=== PATIENT | female | born 1965 | race Caucasian/White ===

== ENCOUNTER 2016-08-19 11:46 | Emergency (ER) | payer OTHER ==
[2016-08-19 11:53] VITALS: BP 139/72; PULSE 73; TEMP 97.9; BMI 26.5
--- NOTE | 2016-08-19 12:35 | PDOC ---
Suture Removal/Wound Check HPI - History of Present Illness Chief Complaint: Revisit,Wound Recheck Stated Complaint: WOUND Time Seen by Provider: 08/19/16 11:59 History Source: Yes: Patient Exam Limitations: Yes: No Limitations Treated at: [facility] Date of Last ED visit: 08/16/16 - Previous ED Treatment Type of procedure performed on last visit: Yes: Laceration Repair (right foot) Tetanus Immunization: Yes: Up to Date Antibiotics Prescribed: Yes Past History - Past Medical History Allergies/Adverse Reactions: Allergies No Known Allergies Allergy (Verified 08/19/16 11:53) Home Medications: Ambulatory Orders Unobtainable [Unobtainable] 08/19/16 General: Yes: no pertinent history Surgical History: Yes: No Surgical History - Social History Smoking History: No Smoking Status: Never smoked Number of Ciarettes Per Day: 0 Alcohol Use: none Drug Use: none Suture Removal/Wound Check PE - Physical Exam Laceration/Wound Check Symptoms: reports: None Comments: 08/19/16 12:30 51 yr female here for wound check bottom of left foot sustained laceration . pt states pain is much improved. no fever, no redness or drainage. Current Severity Level: None Maximum Severity Level: None Location of Laceration/Wound: left: Foot (bottom of right foot ) *Review of Systems - Review of Systems Able to Perform ROS?: Yes Integumentary: Yes: See HPI, Other (wound check right plantar surface) Procedures - Additional Procedures Progress: 08/19/16 13:12 right plantar surface with healing jagged wound, dermabond intact. wound redressed no drainage Medical Decision Making - Medical Decision Making 08/19/16 13:10 cc: wound check right plantar surface. wound was repaired with dermabond placed on keflex. pt states pain is much improved, no fever no drainage wound re-dressed and dc inst given in bengali pt understands [facility] dc plan all questions asked and answered. 08/19/16 13:11 *DC/Admit/Observation/Transfer Diagnosis at time of Disposition: Visit for wound check - Referrals Referrals: Logan Moreno MD [Primary Care Provider] - - Patient Instructions Additional Instructions: keep clean and dry remove the dressing at home in 3 days apply a bandaid or wrap to cover until healed the tape and the glue will peel off on its own in about one week
== END 2016-08-19 12:35 | disposition home or self-care (01) ==
LOC: JERFT 11:46
DX: Z48.01 Encounter for change or removal of surgical wound dressing (principal)
CPT/HCPCS: 99281-25

== ENCOUNTER 2019-06-15 11:37 | Emergency (ER) | payer OTHER ==
[2019-06-15 11:43] VITALS: BP 116/78; PULSE 79; TEMP 98.4; BMI 25.7
--- NOTE | 2019-06-15 12:43 | PDOC ---
History of Present Illness - General Chief Complaint: Vomiting/Diarrhea Stated Complaint: STOMACH VIRUS Time Seen by Provider: 06/15/19 12:25 - History of Present Illness Initial Comments: 06/15/19 12:41 54-year-old female without comorbidities presents for vomiting and diarrhea x1 day no fever she does have chills Past History - Past Medical History Allergies/Adverse Reactions: Allergies Allergy/AdvReac Type Severity Reaction Status Date / Time No Known Allergies Allergy Verified 06/15/19 11:43 Home Medications: Ambulatory Orders Naproxen [Naprosyn -] 500 mg PO BID PRN #14 tablet 01/17/18 Naproxen [Naprosyn -] 500 mg PO BID PRN #14 tablet 01/17/18 COPD: No Diabetes: Yes (BORDERLINE) Psychiatric Problems: Yes (depression? cannot recall name) Other medical history: anxiety - Surgical History Abdominal Surgery: Yes ([facility]) - Psycho Social/Smoking Cessation Hx Smoking Status: No Smoking History: Never smoked Number of Cigarettes Smoked Daily: 0 Hx Alcohol Use: No Drug/Substance Use Hx: No Substance Use Type: None Review of Systems - Review of Systems Constitutional: Yes: Chills. No: Fever ABD/GI: Yes: Diarrhea, Nausea, Poor Appetite, Vomiting. No: Blood Streaked Bowels, Poor Fluid Intake, Rectal Bleeding *Physical Exam - Vital Signs Last Vital Signs Temp Pulse Resp BP Pulse Ox 98.4 F 79 18 116/78 99 06/15/19 11:39 06/15/19 11:39 06/15/19 11:39 06/15/19 11:39 06/15/19 11:39 - Physical Exam 06/15/19 12:41 GENERAL: The patient is awake, alert, and fully oriented, in no acute distress. HEAD: Normal with no signs of trauma. EYES: sclera anicteric, conjunctiva clear. ENT: Ears normal tympanic membranes normal oropharynx clear uvula midline NECK: Normal range of motion LUNGS: Breath sounds equal, clear to auscultation bilaterally. No wheezes, and no crackles. HEART: S1 and S2 without murmur, rub or gallop. ABDOMEN: Soft, nontender, normoactive bowel sounds. No guarding, no rebound. No masses. EXTREMITIES: Normal range of motion, no edema. No clubbing or cyanosis. No cords, erythema, or tenderness. NEUROLOGICAL: Cranial nerves II through XII grossly intact. Normal speech, normal gait. PSYCH: Normal mood, normal affect. SKIN: Warm, Dry, normal turgor, no rashes or lesions noted. Medical Decision Making - Medical Decision Making 06/15/19 12:41 Discussed supportive care with Pedialyte for viral gastroenteritis Tylenol Motrin for fevers Discharge - Discharge Information Problems reviewed: Yes Clinical Impression/Diagnosis: Viral gastroenteritis Condition: Stable Disposition: HOME - Admission No - Follow up/Referral Referrals: Philip Stock MD [Staff Physician] - - Patient Discharge Instructions Patient Printed Discharge Instructions: DI for Viral Gastroenteritis -- Adult, Viral Gastroenteritis, Gastroenteritis Diet Additional Instructions: Small sips of Pedialyte throughout the day to maintain hydration. Tylenol Motrin for fevers and chills. Return to the emergency room for worsening symptoms. Without fail follow-up with your primary care doctor in 2 to 3 days for further evaluation and treatment options. - Post Discharge Activity
== END 2019-06-15 13:04 | disposition home or self-care (01) ==
LOC: JERFT 11:37
DX: A08.4 Viral intestinal infection, unspecified (principal); B97.89 Other viral agents as the cause of diseases classified elsewhere
CPT/HCPCS: 99281-25